=== PATIENT | female | born 1965 | race Caucasian/White ===

== ENCOUNTER 2016-11-18 19:53 | Emergency (ER) | payer OTHER ==
[~2016-11-18] VITALS: Ht 152.4 cm; Wt 81.0 kg
[2016-11-18 20:28] VITALS: BP 114/72; PULSE 83; RESP 20; O2SAT 95
--- NOTE | 2016-11-18 22:38 | DRSVH ---
PROCEDURE: X-RAY RIGHT SHOULDER, MINIMUM TWO VIEWS ([id number]) INDICATIONS: fall TECHNIQUE: 3 views of the shoulder were acquired. COMPARISON: None. FINDINGS: Bones: Although it is unlikely a fracture of the neck of the glenoid inferiorly cannot be excluded be cause of the appearance of slight irregularity of bone. No other suggestion of fracture is seen.. No suspicious bony lesions. Visualized ribs appear intact. Soft tissues: There is a small amount of soft tissue calcification in the region of the rotator cuff. IMPRESSION: On this series the views I cannot exclude the possibility of a compression fracture of th e glenoid fossa into the neck of the glenoid. No other suggestion of fracture is seen. Dictated by: Ulises De Leon M.D. on 11/18/2016 at 22:34 Approved by: Ulises De Leon M.D. on 11/18/2016 at 22:36
--- NOTE | 2016-11-18 22:39 | ED.REPORT ---
HPI-Extremity Problem Upper Date of Service Nov 18, 2016 ED Provider: Cornel Oates DO Pt is a 51 y.o. female with a hx of HTN who presents to the ED c/o right shoulder pain onset 2 days ago and worsening today. Pt states that 2 days ago she tripped over her dog landing on her right shoulder. Earlier today the pt states she went to pull something out of a drawer with her right arm and she experienced extreme pain in her shoulder.. Pt now reports decreased ROM due to pain. Nursing Notes Stated Complaint: R ARM POSSIBLY DISLOCATED Chief Complaint: Extremity Trauma Nursing Notes Reviewed: Yes Allergies: Coded Allergies: tramadol (Verified Allergy, Unknown, 01/28/15) No Active Prescriptions or Reported Meds General Time Seen by MD: 22:38 Chief Complaint Shoulder injury right Hx Obtained From: Patient Arrived By: Walk-in Onset Occurred: 2 days ago Symptom Duration: Since onset Caused by: Accidental, Fall on ground Context: Occurred at: Home injury Location: : Shoulder right Quality: Painful Severity: Current: Severe Recent Healthcare: No recent doctor visit, No recent hospitalization Similar Sx Previous: No Past Medical History Past Medical History Reports: Hypertension Past Surgical History Reports: Hysterectomy Family History denies arthritis Smoking History Former Smoker Social History Alcohol Use: Denies alcohol use Drug Use: Denies drug use Ambulatory Status Independent Review of Systems Decreased ROM, right shoulder Musculoskeletal: Reports: Joint pain (Right shoulder) Neurologic: Reports: Syncope (Near) Complete sys rev & neg: except as marked. Physical Exam Initial Vital Signs Vital Signs (First) Date Time Temp Pulse Resp B/P Pulse Ox O2 Delivery O2 Flow Rate FiO2 11/18/16 20:28 36.0 83 20 114/72 95 Room Air Initial VS: Reviewed Head / Eyes: Atraumatic, Normocephalic Abdomen / GI: No distention Lower Extremities: Vascular intact, Neuro intact Skin: Warm, Dry, No cyanosis Neurologic: Alert, Oriented, Nonfocal Psychiatric: Mood/affect normal, Behavior normal, Normal thought content General/Constitutional: Awake, Alert, Well appearing, Well developed, Well hydrated, Well nourished, Not toxic appearing Respiratory / Chest: Atraumatic, Breath sounds NL, No respiratory distress Cardiovascular: Heart rate NL, Regular rhythm, Cap refill not delayed, Peripheral circulation NL Upper Extremity / MS: Neurologic intact, Vascular intact Upper Ext Brief Normals: Shoulder L exam normal Right Shoulder: Positive: Tenderness present... Right Upper Arm: Positive: Tenderness present... Point tenderness to right posterior scapula and right anterior humeral head consistant with rotator cuff injury. Interpretation & Diagnostics X-Ray Interpretation Xray Interpretation: IMPRESSION: On this series the views I cannot exclude the possibility of a compression fracture of the glenoid fossa into the neck of the glenoid. No other suggestion of fracture is seen. Dictated by: Ulises De Leon M.D. on 11/18/2016 at 22:34 Approved by: Ulises De Leon M.D. on 11/18/2016 at 22:36 X-Ray Ordered: Shoulder right Re-Eval/Medical Decision Med Decision/Clinical Course She is point tender over the scapula. She has not probable range of motion pain especially with abduction and internal and external rotation. It feels like her super spinatus tendon insertion point is also quite tender. Her biceps tendon does not appear to be ruptured. She has strong pulses and a normal neurovascular exam. I am concerned based on the x-rays that she has a L of fracture. She also clinical symptoms consistent with rotator cuff tendon injury. She will be immobilized. Recommend close orthopedic follow-up. Short course of Percocet prescribed for pain. Source of Hx: Old records Re-Evaluation/Progress : Time of Eval: 23:00 Re-Evaluation/Progress Note: Physical exam performed. Discussed dx and plan for discharge, pt understands and agrees with plan. Counseled Regarding: Diagnosis, Lab results, Need for follow-up, When/why to return to ED Discharge & Departure Impression: Primary Impression: Right scapula fracture Encounter type: initial encounter Scapula location: glenoid fossa Fracture type: closed Fracture alignment: nondisplaced Qualified Code: S42.144A - Nondisplaced fracture of glenoid cavity of scapula, right shoulder, initial encounter for closed fracture Additional Impression: Injury of tendon of right rotator cuff Encounter type: initial encounter Qualified Code: S46.001A - Unspecified injury of muscle(s) and tendon(s) of the rotator cuff of right shoulder, initial encounter Disposition: Home Discharge Condition All VS Reviewed: Yes Condition: Stable Patient Instructions: How to Use a Sling (GEN), Rotator Cuff Injury (ED), Scapular Fracture (ED) Additional Instructions: The x-ray is concerning for a scapula fracture. Your exam is concerning for rotator cuff tendon injury. Keep your arm immobilized until seen in follow-up by orthopedics. You need to be seen within 7 days. Call tomorrow morning to set up a follow-up with Dr. Quinn for next week. Do not use your right arm until cleared by orthopedics. Take 1-2 Percocet every 6 hours as needed for pain. Do not drive or drink alcohol or consume acetaminophen while taking the Percocet. Do not hesitate to return if any problems or any worsening symptoms. Referrals: Raymond Mead MD (PCP) Chi Quinn Attestation Portions of this note were transcribed by Baljit Powers. I, Dr. Oates personally performed the history, physical exam and medical decision-making; I reviewed and confirmed the accuracy of the information in the transcribed note. Signed by : Dagmar Currie, 11/18/16 and 4160. copies to: Chi Quinn DO; Raymond Mead MD, Todd P DO Nov 18, 2016 22:39 BALJIT POWERS Nov 18, 2016 22:57
[2016-11-18] MEDS ORDERED: HYDROmorphone 1 mg/mL Inj IM ONE (23:00)
[2016-11-18] MEDS ORDERED: _oxyCODONE/APAP 5-325 mg Tablet PO PRN (23:00)
[2016-11-18] MEDS ORDERED: Ketorolac 30 mg/mL 2 mL Inj IM ONE (23:00)
[2016-11-18] MEDS ORDERED: _Ondansetron ODT 4 mg Tablet PO PRN (23:00)
[2016-11-18 23:16] VITALS: BP 144/78; PULSE 83; RESP 22; O2SAT 97
[2016-11-19 00:08] VITALS: BP 138/72; PULSE 82; RESP 20; O2SAT 96
[2016-12-08] MEDS ORDERED: OXYC1TAB24 PO (09:03)
== END 2016-11-19 00:09 | disposition home or self-care (01) ==
LOC: SED 19:53
DX: S42.144A Nondisplaced fracture of glenoid cavity of scapula, right shoulder, initial encounter for closed fracture (principal); S46.001A Unspecified injury of muscle(s) and tendon(s) of the rotator cuff of right shoulder, initial encounter; W01.0XXA Fall on same level from slipping, tripping and stumbling without subsequent striking against object, initial encounter; Y93.89 Activity, other specified; Y92.019 Unspecified place in single-family (private) house as the place of occurrence of the external cause; Y99.8 Other external cause status; I10 Essential (primary) hypertension; Z87.891 Personal history of nicotine dependence; Z88.5 Allergy status to narcotic agent
CPT/HCPCS: 73030; 96372; 99284; J1170; J1885

== ENCOUNTER 2016-12-09 11:55 | Day surgery (SDC) | payer OTHER ==
[2016-12-09] VITALS (11 sets, daily range): BP systolic 119–146; BP diastolic 60–86; PULSE 71–88; RESP 15–21; O2SAT 90–100
[~2016-12-09] VITALS: Ht 152.4 cm; Wt 83.0 kg
[~2016-12-09 11:55] MED LIST: CeFAZolin Inj 2 GM in IV Premix 1 EACH IV SCH; OXYC1TAB24 PO
[2016-12-09] MEDS ORDERED: Propofol 10,000 mCg/mL 20 mL Inj ONE (11:56)
[2016-12-09] MEDS ORDERED: Ondansetron 2 mg/mL 2 mL Inj ONE (11:56)
[2016-12-09] MEDS ORDERED: fentaNYL-PF 50 mCg/mL 2 mL Inj ONE (11:56)
[2016-12-09] MEDS ORDERED: Phenylephrine/NS 100 mCg/mL 10 mL Syringe IVPUSH ONE (11:56)
[2016-12-09] MEDS ORDERED: Succinylcholine Chloride 20 mg/mL 5 mL Inj ONE (11:56)
[2016-12-09] MEDS ORDERED: Lidocaine PF 1% 30 mL Inj ONE (11:56)
[2016-12-09] MEDS: Lactated Ringer's 1,000 ML IV SCH ×2 (12:00→12:30)
[2016-12-09] MEDS ORDERED: Lactated Ringer's 1,000 ML IV SCH (12:56)
[2016-12-09] MEDS ORDERED: Lactated Ringer's 500 ML IV PRN (12:56)
--- NOTE | 2016-12-09 12:56 | PCM.HPANE ---
Patient Data Date of Service: Dec 09, 2016 Surgeon Admitting Provider: Attending Provider:Linwood Steen MD Primary Care Physician:Raymond Mead MD Other Provider:Jocelyn Persaud Anesthesia Reason for Visit Right Shoulder Bankhart Fracture Ht/WT & BMI Height (Feet): 5 Height (Inches): 0 Weight (Kilograms): 83. Body Mass Index 35.00 Allergies Coded Allergies: tramadol (Verified Adverse Reaction, Severe, WEIRD DREAMS, 12/09/16) Past Anesthesia History Anesthesia History: Denies:: Anesthesia Reactions, Malignant Hyperthermia Diabetes History Hx Diabetes?: No MRSA MRSA: No Medications Hypertension Medication: No Home Meds Incl Beta Paul: No Reported Medications oxyCODONE-Acetaminophen 5-325 mg 1 Each Tablet1 Tab PO Q6H PRN For Pain Ref 0 12/08/16 History History of ENT Problems?: Yes HEENT History: Positive for:: Sinus Problem (ALLERGIC RHINITIS) Denies:: TMJ (HX OF TRIGEMINAL NEURALGIA) Hx of Heart Problems?: Yes Cardiovascular History: Denies:: Abdominal Aortic Aneurism (AORTIC ATHERSCLEROSIS) Congestive Heart Failure Heart Murmur Hypertension (HYPERLIPIDEMIA) Hx of Respiratory Problem?: No Respiratory History: Denies:: Tuberculosis Use of C-PAP Machine Hx Neurologic Problems?: Yes Neurological History: Positive for:: Headaches Other Neurological Pertinent: HX OF TRIGEMINAL NEURALGIA Hx of GI Problems?: Yes Gastrointestinal History: Positive for:: Gall Bladder Disease (HX OF CHOLELITHIASIS) Hx of Problems?: Yes Genitourinary History: Positive for:: Kidney Stones (PASSED ON OWN X2) Female Hx: Denies:: Currently Skin History: Denies:: History Skin Disorders? Pressure Ulcers Hx Musculoskeletal Problems?: Yes Musculoskeletal History: Positive for:: Musculoskeletal Trauma (HX LT SHOULDER INJURY RT SHOULDER BANKHART FX=CURRENT PROBLEM) Denies:: Osteoarthritis (PT DENIES) Hx of Psycho/Social Problems?: No Hx Surgeries?: Yes (hysterectomy) Hx Any Other Health Problems?: Yes Other History: Denies:: Cancer Endocrine Disease Thyroid Disease History Blood Transfusions: Denies:: Blood Transfusions Hx Diabetes: No Hx Alcohol Use: NoHx Substance Use: No Smoking Status: Former Smoker Have You Smoked inLast 12 mo: YesApprox How Many Cigarettes/day: 1/2 PPD Stop/Bang S-Snoring: Do You Snore Loudly: No T-Tired: feel tired, fatigued: No O-Obsered: Observed not breath: No P-Blood Pressure: treated: No B- Body Mass Index > 35 kg/m2: Yes A- Age over 50: Yes N- Neck Large Circumference: No G- Gender Male: No TIARA Total Score: 2 TIARA Risk Assessment: Low Risk, <3 Yes Risk Assessment Category Category 1A: Patient has history of documented sleep apnea, and HAS NOT received any narcotic, sedative or anesthesia administration during this stay. Category 1B: Patient has history of documented sleep apnea, and HAS received any narcotic , sedative or anesthesia administration during this stay Category 2: Patient has SUSPECTED Obstructive Sleep Apnea, and HAS received any narcotic , sedative or anesthesia administration during this stay. Category 3: Patient has SUSPECTED Obstructive Sleep Apnea and HAS NOT received narcotic, sedative or anesthesia administration during this stay. Category 4: Outpatient in Procedural Areas with known sleep apnea or who screen positive for High Risk via the STOP/BANG questionnaire. Exam Exam Vital Signs Vital Signs Date Time Temp Pulse Resp B/P Pulse Ox O2 Delivery O2 Flow Rate FiO2 12/09/16 12:25 36.8 82 18 121/72 96 Room Air General Appearance: Alert, Oriented X3, Cooperative HEENT/AIRWAY: MP 2, Neck Movement (Full), Mouth Opening (Wide) Lungs: Clear to Auscultation, Normal Air Movement Heart: Regular Rate/Rhythm, Normal S1, Normal S2 Meds/Labs/Diagnostics Admission Meds Current Medications Lactated Ringer's (Lr) 1,000 ml @ 120 mls/hr Q8H20M IV Last administered on t 12:00; Start 12/09/16 at 05:00; Stop 12/09/16 at 13:19 Plan Impression Patient chart reviewed, patient interviewed and anesthestic plan with risks, benefits, and alternatives discussed, and informed consent obtained. NPO Status: > 2 hours liquids, > 12 hours solids ASA Physical Status: ASA2 Mod Systemic Disease Anesthetic Plan: GA, Regional Block Bene/Risks/Altern/Consents: Yes HP Complete Prior to Induction: Yes Saeed Sanon MD Dec 09, 2016 12:32
[2016-12-09] MEDS ORDERED: EPHEDrine Sulfate 50 mg/mL Inj IVPUSH PRN (13:00)
[2016-12-09] MEDS ORDERED: HYDROmorphone 1 mg/mL Inj IVPUSH PRN (13:00)
[2016-12-09] MEDS ORDERED: Phenylephrine 10,000 mCg/mL Inj IVPUSH PRN (13:00)
[2016-12-09] MEDS ORDERED: Labetalol 5 mg/mL 4 mL Inj IV PRN (13:00)
[2016-12-09] MEDS ORDERED: hydrALAZINE 20 mg/mL Inj IVPUSH PRN (13:00)
[2016-12-09] MEDS ORDERED: MetoCLOpramide 5 mg/mL 2 mL Inj IVPUSH PRN (13:00)
[2016-12-09] MEDS ORDERED: Ondansetron 2 mg/mL 2 mL Inj IVPUSH PRN (13:00)
[2016-12-09] MEDS ORDERED: Dexamethasone 4 mg/mL Inj IVPUSH PRN (13:00)
[2016-12-09] MEDS ORDERED: Atropine 0.4 mg/mL Inj IVPUSH PRN (13:00)
[2016-12-09] MEDS ORDERED: fentaNYL-PF 50 mCg/mL 2 mL Inj IVPUSH PRN (13:00)
[2016-12-09] MEDS ORDERED: Ropivacaine-PF 0.5% 30 mL Inj INFILTRATE ONE (14:03)
--- NOTE | 2016-12-09 15:07 | PCM.ANEP1 ---
Post Anesthesia Phase 1 PACU Phase 1 Assessment Date of Service: Dec 09, 2016 Vital Signs Pacu - 1 pain, BP 146/81, HR 88, RR 20 O2 99% 10L T 36.6 Vital Signs Date Time Temp Pulse Resp B/P Pulse Ox O2 Delivery O2 Flow Rate FiO2 12/09/16 12:25 36.8 82 18 121/72 96 Room Air Anesthetic Administered: GA, Regional Block Level of Alertness: Awake, talking GILBERT's with Equal Strength: No Pain: No Nausea or Vomiting: No Oxygen Delivery: Simple Mask Lungs: Normal Air Movement Saeed Sanon MD Dec 09, 2016 15:07
--- NOTE | 2016-12-09 15:14 | PCM.ANEP2 ---
Post Anesthesia Evaluation ASA/CMS Post Anesthesia Date of Service: Dec 09, 2016 VS in Patient's Normal Range?: Yes Resp Stable; Airway Patent?: Yes CV Function & Hydration Stable: Yes Mental Status Recovered?: Yes Pain control Satisfactory?: Yes N/V Control Satisfactory?: Yes Saeed Sanon MD Dec 09, 2016 15:14
[2016-12-09] MEDS ORDERED: oxyCODONE-Acetamin 5-325 mg Tablet PO PRN (15:20)
--- NOTE | 2016-12-09 15:29 | PCM.ORTHOP ---
Orthopedic Operative Report Date of Service: Dec 09, 2016 Pre Operative Diagnosis right shoulder bony bankart fracture Post Operative Diagnosis right shoulder bony bankart fracture Procedure right shoulder arthroscopy, bony bankart repair, labral repair Surgeon Surgeon: Linwood Steen MD Assistants: None Indication for Procedure right shoulder bony bankart fracture Findings Right shoulder bony Bankart fracture, labral tear 12:30 to 5:00 Details of Procedure INDICATIONS: The patient is a Glenys Royal who is a 51-year-old left hand dominant female who has developed instability of the right shoulder after falling 2 weeks ago. X-rays show the glenohumeral joint to be well maintained. The risks, benefits, and alternatives of surgery were discussed with the patient. The risks included but were not limited to infection, bleeding, damage to vessels and nerves, loss of motion, continued pain, complications due to anesthesia including myocardial infarction, stroke, , etc. The patient stated understanding of the nature of the surgical procedure and gave written and verbal consent to proceed. PROCEDURE: The patient was brought into the operating room and placed supine on the operating room table. A interscalene block was placed in the right shoulder for postoperative pain management, followed by the administration of general anesthesia. Preoperative antibiotics was given The patient was then placed into the lateral decubitus position with the right side up. An axillary role was placed and the legs were padded as necessary to avoid pressure points. The patient was maintained in position with a beanbag evacuation device. A thorough examination of the right shoulder under anesthesia was performed. The patient had 150 degrees of forward elevation and 110 degrees of abduction. In 90 degrees of abduction the patient had 80 degrees of external rotation and 60 degrees of internal rotation. The right shoulder was then examined for stability. In neutral rotation there was 3/5 anterior instability. The right upper extremity was then prepped and draped in the usual fashion. The arm was suspended with a well-padded sleeve with eight pounds of balanced suspension in the arthroscopic position. A standard posterior portal was made inferior and medial to the posterior corner of the acromion. The incision was made only through skin. The trocar was advanced through the soft tissue with a blunt- tipped obturator. This was inserted into the glenohumeral joint without difficulty. The arthroscope was placed through the cannula and attached to the video monitor system. Inflow was achieved using the arthroscopic pump. The pressure was maintained at 35-40 mm of mercury throughout the entire procedure. Once the arthroscope confirmed visualization within the shoulder joint, it was advanced anteriorly into the rotator interval beneath the biceps tendon. A Wissinger herminia was then used to create the anterior portal from inside-out. A second anterior stab wound incision was made only through skin and an anterior cannula was placed. A routine arthroscopic survey was begun Survey: Large bony Bankart fracture approximately 1 cm x 6 mm and 5 mm x 3 mm in size from 12:30 to 5:00 Attention was then directly toward anterior labral repair. An anterior mid- glenoid portal was established with an outside in technique just above the subscapualris. With the arthroscope in the anterior superior viewing portal there was evidence of significant tearing of the anterior inferior labrum, Bankart lesion. Using a Liberator elevator and a blunt tipped [place] bar, a full thickness capsulolabral elevation was carried out down to the 6 o'clock position. The fibers of the subscapularis were well seen. The medial neck of the glenoid was well maintained and lightly abraded using the motorized shaver. The articular cartilage margin along with the anterior glenoid rim was lightly debrided using a curette. The firstanchor was placed in the 5:00 position using the curved ios developer for the suturetak anchor. The anchor was deployed and seated with excellent secure fixation. The sutures from this anchor were then passed beginning with the 1st stitch at the 5:30 position and advancing the tissue from inferior to superior and from medial to lateral. This was a full thickness labral bite which restored an excellent buttress inferiorly. After the 1st labral stitch, the humeral head was well centralized on the glenoid. The 2nd stitch from the anterior inferior most anchor was passed taking a plication bite as well as a full thickness labral bite creating a hospital corner repair with excellent secure fixation and incorporation of the bony fragments. 2 additional suture tacks were placed at more proximally with excellent fixation purchase. The remaining sutures were similarly passed , placing full thickness labral bites as well as capsular advancement, advancing the anterior inferior capsule and labrum from inferior to superior and medial to lateral. There appeared to be excellent holiness of the anterior labral bumper. The drive-through sign was eliminated. The humeral head appeared to be well centralized, visualizing from both anterior superior and the posterior cannula. There was excellent holiness of the bumper and no further evidence for instability. Closure: The arm was then taken out of traction. The instability both in neutral rotation and in abduction external rotation was eliminated. The humeral head was well centralized. The arthroscope was then used to visualize the repair both from the anterior superior viewing portal and the posterior viewing portal which showed the humeral head to be well balanced with excellent and appropriate tissue tension. The glenohumeral joint was then copiously irrigated with an additional liter of lactated Ringers solution and excess fluid was drained. The arthroscopic portals were closed with #4-0 Nylon and Steri-Strips. A dry sterile dressing was applied, followed by a neutral rotation sling. The patient was awakened in the Operating Room and transported to the Recovery Room in satisfactory condition. He appeared to tolerate the procedure well. There were no complications noted. Grafts, Implants: None Complications There were no periprocedural complications identified. Condition Stable Anesthetic Administered: GA, Regional Block Catheters: None Output, Estimated Blood Loss: 5 Blood Admin during surgery: No Surgical Cast or Splint: Shoulder Immobilizer Surgical Specimen Removed: No Specimen sent to Pathology: No copies to: Linwood Steen MD, Christopher L MD Dec 09, 2016 15:29
== END 2016-12-09 23:59 | disposition home or self-care (01) ==
LOC: SAS 11:55
PROVIDERS: ATTEND Orthopaedic Surgery
DX: S42.144A Nondisplaced fracture of glenoid cavity of scapula, right shoulder, initial encounter for closed fracture (principal); M25.511 Pain in right shoulder; W19.XXXA Unspecified fall, initial encounter; Y93.9 Activity, unspecified; Y92.9 Unspecified place or not applicable; I70.0 Atherosclerosis of aorta; G43.909 Migraine, unspecified, not intractable, without status migrainosus; J30.9 Allergic rhinitis, unspecified; G50.0 Trigeminal neuralgia; F17.210 Nicotine dependence, cigarettes, uncomplicated; E78.00 Pure hypercholesterolemia, unspecified
CPT/HCPCS: 29807; C1713; J0330; J0690; J2250; J2370; J2405; J2795; J3010; J7120